=== PATIENT | male | born 1940 | race Caucasian/White ===

== ENCOUNTER 2018-09-10 18:56 | Inpatient (IN) | payer OTHER ==
[~2018-09-10] VITALS: Ht 172.7 cm; Wt 73.9 kg
--- NOTE | ~2018-09-10 | CON ---
[address] [address] CONSULTATION Name: ROCK FERRARI Room: [address] IN .R.#: [id number] Admission: 09/10/18 Attend Phys: Ella Rodriguez MD Discharge: Date of : 38 Report #: [id number] THIS REPORT FOR: //name// CC: Cristi Rodriguez DATE OF SERVICE: 09/11/2018 CONSULTING PHYSICIAN: Dr. Rodriguez. REASON FOR NEPHROLOGY CONSULTATION: Acute kidney injury. REASON FOR ADMISSION: The patient with nausea, vomiting and diarrhea. HISTORY OF PRESENT ILLNESS: This is a 78-year-old male who has a past medical history of dyslipidemia, hypertension, non-insulin dependent diabetes mellitus, coronary artery stent and GERD who came in with nausea, vomiting, diarrhea, abdominal pain and symptoms started 3 days before admission. He said that he did not have much vomiting, but he had several bouts of diarrhea. He had abdominal CT scan on arrival to the ER, which showed most likely gastroenteritis. His baseline creatinine is not known. His creatinine was 1.0 in 2001. His creatinine was found to be 2.2. It has improved with IV fluids to 1.9. He does have lisinopril at home and takes Aleve very occasionally. He states that he is not having any problem urinating. He does follow up with urologist and is on Flomax and finasteride. ALLERGIES: PENICILLIN. REVIEW OF SYSTEMS: As mentioned in history of present illness. HOME MEDICATIONS: Which include aspirin, atorvastatin, methylcellulose, fexofenadine, finasteride, folic acid, lisinopril, bimatoprost, metformin, omeprazole, paroxetine, tamsulosin, trospium. PAST MEDICAL AND SURGICAL HISTORY: Includes high cholesterol, high blood pressure, non-insulin dependent diabetes mellitus, coronary artery stent and GERD. FAMILY HISTORY: Significant for kidney disease in his grandfather who had probable kidney stones and ovarian cancer in mother. SOCIAL HISTORY: He lives at home alone, but he has a very supportive daughter. He does not smoke, drink alcohol or use illicit drugs. PHYSICAL EXAMINATION: VITAL SIGNS: Blood pressure is 132/91, respiratory rate 18, pulse rate is 82, [place] [address] CONSULTATION Name: ROCK FERRARI Room: [address] IN [facility]#: [id number] Admission: 09/10/18 Attend Phys: Ella Rodriguez MD Discharge: Date of : 38 Report #: [id number] temperature is 36.4, pulse ox is 95% on room air. GENERAL: He is awake, alert, oriented x 3. HEAD, EYES, EARS, NOSE AND THROAT: Mucous membranes are dry. NECK: There is no JVD. CHEST: Clear to auscultation bilaterally. No crackles or wheezing. CARDIOVASCULAR: S1, S2 normal. No murmurs or rubs. ABDOMEN: Soft, nondistended, nontender. Bowel sounds are present. EXTREMITIES: There is no lower extremity edema, symmetrical lower extremities. NEUROLOGICAL FUNCTION: Gross neurological function is intact. PSYCHIATRIC: Mood and affect seem to be normal. LABORATORY DATA: Hemoglobin 12.4, WBC 33.5. Sodium is 135, potassium was 2.7, now 3.9, creatinine was 2.2, now 1.9. Other labs are reviewed and magnesium was 1.5. IMAGING: Abdominal CT scan and chest x-ray reviewed. ASSESSMENT AND PLAN: 1. Acute kidney injury in the setting of acute gastroenteritis, vomiting and diarrhea and lisinopril use, creatinine is getting better with IV fluids. UA showed evidence of hyaline casts and 2+ protein and the urine should be repeated once his acute kidney injury gets better. Baseline creatinine is not known. We do know that his creatinine was 1.0 in 2001. Creatinine was 2.2 on admission. 2. Nausea, vomiting, diarrhea, acute gastroenteritis, he is getting IV fluids and primary team is treating that. 3. Hypomagnesemia. Magnesium is 1.5. 4. History of possible benign prostatic hypertrophy, he is on Flomax and finasteride, but he is also on trospium, which is an anticholinergic agent. 5. History of diabetes mellitus type 2. PLAN: 1. Continue IV fluids. No evidence of any obstruction. Abdominal CAT scan. Await final baseline creatinine. 2. Magnesium is already being replaced. 3. Check a bladder scan. Also check I's and O's strictly. Thank you for this consultation. We will continue to follow along with you. Discussed the plan with the patient, the patient's daughter as well as the patient's nurse. By: 0918 Darrel Poon MD /dario
[2018-09-10 19:08] VITALS: BP 149/86
[2018-09-10] MEDS ORDERED: ASPIR 8181 MG PO (19:11)
[2018-09-10] MEDS ORDERED: CITRUCEL500 MG PO (19:12)
[2018-09-10] MEDS ORDERED: PROSCAR 5MG TABL5 M1 PO (19:12)
[2018-09-10] MEDS ORDERED: LIPITOR80 MG PO (19:12)
[2018-09-10] MEDS ORDERED: FOLIC ACID1 MG (19:13)
[2018-09-10] MEDS ORDERED: LUMIGAN2.5 M1 OPHTHALMIC (19:13)
[2018-09-10] MEDS ORDERED: LISINOPRIL10 MG PO (19:13)
[2018-09-10] MEDS ORDERED: METFORMIN HCL500 MG PO (19:14)
[2018-09-10] MEDS ORDERED: PAXIL10 MG PO (19:14)
[2018-09-10] MEDS ORDERED: OMEPRAZOLE 20 M20 M1 PO (19:14)
[2018-09-10] MEDS ORDERED: FLOMAX0.4 MG PO (19:15)
[2018-09-10] MEDS ORDERED: TROSPIUM CHLORI60 MG PO (19:15)
[2018-09-10 19:22] LABS: HEMATOCRIT 44.6 % (42.0-52.0); HEMOGLOBIN 14.7 gm/dL (14.0-18.0); MCH 32.4 pg (26.0-34.0); MCV 98.3 fL (80.0-100.0); MPV 8.5 fl. (7.2-11.1); NUCLEATED RBCS 0 /100WBC; PLATELET COUNT* 190 thou/uL (150-400); RBC 4.53 mil/uL (4.50-6.00); RDW-CV 14.7 % (10.5-14.5); WBC 4.5 thou/uL (4.0-11.0)
[2018-09-10 19:31] LABS: ANION GAP 11 mmol/L (7-16); BUN 39 mg/dL (7-18); CALCIUM 9.5 mg/dL (8.5-10.1); CHLORIDE 96 mmol/L (98-107); CO2 26 mmol/L (21-32); CREATININE 2.2 mg/dL (0.6-1.3); GLUCOSE 135 mg/dL (70-99); POTASSIUM 2.7 mmol/L (3.5-5.1); SODIUM 133 mmol/L (136-145)
[2018-09-10 19:37] LABS: ALBUMIN 3.7 g/dL (3.4-5.0); ALKALINE PHOSPHATASE 109 U/L (46-116); LIPASE 69 U/L (73-393); SGOT 31 U/L (15-37); SGPT 44 U/L (30-65); TOTAL BILIRUBIN 0.7 mg/dL (<0.1-1.0); TOTAL PROTEIN 8.2 g/dL (6.4-8.2); TROPONIN-I LEVEL <0.06 ng/mL (<0.06)
[2018-09-10 20:06] LABS: ABSOLUTE MONOCYTES 0.4 thou/uL (0.0-1.2); ABSOLUTE NEUTROPHILS 3.1 thou/uL (1.6-8.1); ATYPICAL LYMPHS 7 %; PLATELET ESTIMATE ADEQUATE
[2018-09-10 20:30] LABS: URINE BILIRUBIN NEGATIVE (Negative); URINE BLOOD TRACE (Negative); URINE CLARITY CLEAR; URINE COLOR YELLOW; URINE GLUCOSE-RANDOM NEGATIVE (Negative); URINE KETONES NEGATIVE (Negative); URINE LEUKOCYTES-REFLEX NEGATIVE (Negative); URINE NITRITE-REFLEX NEGATIVE (Negative); URINE PROTEIN 2+ (Negative); URINE SPECIFIC GRAVITY >= 1.030 (1.005-1.030); URINE UROBILINOGEN 0.2 E.U./dl (0.2-1.0)
[2018-09-10 20:45] LABS: HYALINE CASTS >10 Many /LPF (None Seen); MUCUS None Seen strn/LPF (None Seen); SQUAMOUS 0-3 Few /LPF (0-3)
[2018-09-10 20:46] LABS: CRYSTALS None Seen /LPF (None Seen); URINE RBC 0-2 Rare /HPF (0-2); URINE WBC-REFLEX 0-5 Rare /HPF (0-5)
[2018-09-10 21:52] VITALS: BP 119/68
[2018-09-10 22:00] VITALS: BP 162/97
[2018-09-11] VITALS: BP 137/76
[2018-09-11 04:00] VITALS: BP 124/81
[2018-09-11 05:46] LABS: ABSOLUTE LYMPHOCYTES 0.4 thou/uL (0.8-5.3); ABSOLUTE MONOCYTES 0.6 thou/uL (0.0-1.2); ABSOLUTE NEUTROPHILS 2.4 thou/uL (1.6-8.1); BASOPHILS 0.3 %; EOSINOPHILS 0.2 %; LYMPHOCYTES 12.3 %; MCH 32.3 pg (26.0-34.0); MCHC 32.6 g/dL (28.0-37.0); MCV 99.1 fL (80.0-100.0); MONOCYTES 16.7 %; MPV 8.5 fl. (7.2-11.1); NUCLEATED RBCS 0 /100WBC; PLATELET COUNT* 142 thou/uL (150-400); POLYS 70.5 %; RBC 3.84 mil/uL (4.50-6.00); RDW-CV 14.8 % (10.5-14.5); WBC 3.5 thou/uL (4.0-11.0)
[2018-09-11 05:48] LABS: HEMOGLOBIN 12.4 gm/dL (14.0-18.0)
[2018-09-11 05:53] LABS: CALCIUM 8.3 mg/dL (8.5-10.1); CREATININE 1.9 mg/dL (0.6-1.3); MAGNESIUM 1.5 mg/dL (1.8-2.4); POTASSIUM 3.9 mmol/L (3.5-5.1)
[2018-09-11 08:00] VITALS: BP 132/91
--- NOTE | 2018-09-11 10:20 | EKG ---
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[id number] Requested By: Doris Yepez Order Number: [id number] MD: Cristi Rocha Measurements Intervals [place] Rate: 88 P: 63 [place]: 184 QRS: 20 QRSD: 89 T: 43 QT: 356 QTc: 431 Interpretive Statements Sinus rhythm Atrial premature complexes Left ventricular hypertrophy nonspecific t wave changes No previous ECG available for comparison Electronically Signed On 09-11-2018 10:20:28 CDT by Cristi Rocha [email or web address] <ELECTRONICALLY SIGNED> By: Cristi Rocha MD, [facility] 09/11/18 1020 36 36 Cristi Rocha MD, FACC /EPI
[2018-09-11 12:29] VITALS: BP 151/84
[2018-09-11 16:00] VITALS: BP 114/84
[2018-09-11 20:00] VITALS: BP 157/97
[2018-09-12] VITALS: BP 137/81
[2018-09-12 04:00] VITALS: BP 158/98
[2018-09-12 05:20] LABS: HEMATOCRIT 37.2 % (42.0-52.0); HEMOGLOBIN 12.3 gm/dL (14.0-18.0); MCH 32.4 pg (26.0-34.0); MCHC 33.2 g/dL (28.0-37.0); MCV 97.8 fL (80.0-100.0); MPV 8.8 fl. (7.2-11.1); RBC 3.8 mil/uL (4.50-6.00); RDW-CV 14.6 % (10.5-14.5); WBC 4.4 thou/uL (4.0-11.0)
[2018-09-12 05:33] LABS: CALCIUM 8.7 mg/dL (8.5-10.1); CREATININE 1.5 mg/dL (0.6-1.3); MAGNESIUM 1.7 mg/dL (1.8-2.4); POTASSIUM 3.2 mmol/L (3.5-5.1)
[2018-09-12 08:00] VITALS: BP 147/92
[2018-09-12 12:00] VITALS: BP 148/89
[2018-09-12 16:00] VITALS: BP 148/104
[2018-09-12 20:00] VITALS: BP 169/91
[2018-09-13] VITALS: BP 152/78
[2018-09-13 04:00] VITALS: BP 143/104
[2018-09-13 09:00] VITALS: BP 157/120
[2018-09-13 10:36] LABS: ABSOLUTE MONOCYTES 0.6 thou/uL (0.0-1.2); ABSOLUTE NEUTROPHILS 2.8 thou/uL (1.6-8.1); BASOPHILS 0.5 %; EOSINOPHILS 1.1 %; HEMATOCRIT 35.6 % (42.0-52.0); HEMOGLOBIN 11.6 gm/dL (14.0-18.0); LYMPHOCYTES 21.4 %; MCHC 32.7 g/dL (28.0-37.0); MONOCYTES 14.6 %; MPV 8.1 fl. (7.2-11.1); NUCLEATED RBCS 0 /100WBC; PLATELET COUNT* 164 thou/uL (150-400); POLYS 62.4 %; RBC 3.63 mil/uL (4.50-6.00); RDW-CV 14.5 % (10.5-14.5); WBC 4.5 thou/uL (4.0-11.0)
[2018-09-13 10:44] LABS: CALCIUM 8.6 mg/dL (8.5-10.1); CREATININE 1.3 mg/dL (0.6-1.3); MAGNESIUM 1.7 mg/dL (1.8-2.4); POTASSIUM 3.6 mmol/L (3.5-5.1)
[2018-09-13 12:02] VITALS: BP 152/96
[2018-09-13 16:00] VITALS: BP 123/78
[2018-09-13 20:00] VITALS: BP 155/91
[2018-09-14] VITALS: BP 139/83
[2018-09-14 05:52] VITALS: BP 163/91
[2018-09-14 07:19] LABS: ANION GAP 6 mmol/L (7-16); BUN 14 mg/dL (7-18); CALCIUM 8.1 mg/dL (8.5-10.1); CHLORIDE 109 mmol/L (98-107); CO2 24 mmol/L (21-32); CREATININE 1.2 mg/dL (0.6-1.3); GLUCOSE 95 mg/dL (70-99); POTASSIUM 3.8 mmol/L (3.5-5.1); SODIUM 139 mmol/L (136-145)
[2018-09-14 07:21] LABS: AMMONIA < 10 umol/L (11-32)
[2018-09-14 08:00] VITALS: BP 140/93
[2018-09-14 11:50] LABS: URINE BILIRUBIN NEGATIVE (Negative); URINE BLOOD NEGATIVE (Negative); URINE CLARITY CLEAR; URINE COLOR YELLOW; URINE GLUCOSE-RANDOM TRACE (Negative); URINE KETONES NEGATIVE (Negative); URINE LEUKOCYTES-REFLEX NEGATIVE (Negative); URINE NITRITE-REFLEX NEGATIVE (Negative); URINE PROTEIN NEGATIVE (Negative); URINE UROBILINOGEN 0.2 E.U./dl (0.2-1.0)
[2018-09-14 13:12] VITALS: BP 145/91
[2018-09-14] MEDS ORDERED: MULTI VITAMIN1 EACH PO (13:51)
[2018-09-14] MEDS ORDERED: ALLERGY RELIEF180 MG PO (14:12)
[2018-09-14 15:38] VITALS: BP 145/91
== END 2018-09-14 16:08 | disposition home or self-care (01) | DRG 872 ==
LOC: M.ERS 18:56 → M.TBA-ER 20:30 → M.2W 20:30
PROVIDERS: Physician Assistant Surgical; ADMIT Family Medicine
DX: A41.89 Other specified sepsis (principal); N17.9 Acute kidney failure, unspecified; R65.20 Severe sepsis without septic shock; E78.00 Pure hypercholesterolemia, unspecified; E11.9 Type 2 diabetes mellitus without complications; E86.0 Dehydration; E87.6 Hypokalemia; E78.5 Hyperlipidemia, unspecified; E86.9 Volume depletion, unspecified; F22 Delusional disorders; A08.4 Viral intestinal infection, unspecified; K21.9 Gastro-esophageal reflux disease without esophagitis; Z60.2 Problems related to living alone; E83.42 Hypomagnesemia; N40.0 Benign prostatic hyperplasia without lower urinary tract symptoms; Z79.82 Long term (current) use of aspirin; Z79.899 Other long term (current) drug therapy; Z88.0 Allergy status to penicillin; Z95.5 Presence of coronary angioplasty implant and graft; Z84.1 Family history of disorders of kidney and ureter; Z80.41 Family history of malignant neoplasm of ovary